=== PATIENT | female | born 1945 | race Caucasian/White ===

== ENCOUNTER 2017-10-11 19:21 | Inpatient (IN) | payer MEDICARE, OTHER ==
[~2017-10-11] VITALS: Ht 154.9 cm; Wt 62.1 kg
--- NOTE | ~2017-10-11 | PN ---
PATIENT:ONOFRE CALDERÓN MEDICAL RECORD: [id number] LOCATION:[facility] ADMISSION DATE: 10/11/17 PROGRESS NOTE DATE OF SERVICE: 10/17/2017 SUBJECTIVE: The patient's case was discussed with staff. She has no new complaint. OBJECTIVE: The patient has shown significant improvement. She is not aggressive. She is less confused. In fact, she is partially oriented. ASSESSMENT: No change in diagnoses. PLAN: Current medicines have been reviewed and will be maintained. The patient is improved sufficiently such that her daughter feels that she can take her to home with her instead of placing her in the [facility]. I am cautiously optimistic that this level of improvement will be maintained. TRANSINT:[id number] Voice Confirmation ID: [id number] DOCUMENT ID: [id number] JACINTO JOHNSON MD at 1129 CC: [id number] DICTATION DATE: 10/17/17 1428 AIR OPERATIONS MANAGER: 10/17/17 1522 ADM IN [place] [id number] [place] [address]
--- NOTE | ~2017-10-11 | PN ---
PATIENT:ONOFRE CALDERÓN MEDICAL RECORD: [id number] LOCATION:[facility] ADMISSION DATE: 10/11/17 PROGRESS NOTE DATE OF SERVICE: 10/14/2017 SUBJECTIVE: The patient's case was discussed with staff. She has no new complaint. OBJECTIVE: The patient has limited insight about her condition. She tolerates her medicines well. She is extremely confused and often has some agitated behavior that I think is associated with her inability to understand what is going on. ASSESSMENT: No change in diagnoses. PLAN: Current medicines have been reviewed and will be maintained. Her long-term prognosis is guarded. TRANSINT:[id number] Voice Confirmation ID: [id number] DOCUMENT ID: [id number] JACINTO JOHNSON MD at 1203 CC: [id number] DICTATION DATE: 10/14/17 1527 TRAFFIC EXPERT: 10/14/17 1607 ADM IN [place] [id number] [place] [address]
--- NOTE | ~2017-10-11 | DS ---
PATIENT:ONOFRE CALDERÓN :41 MEDICAL RECORD: [id number] DISCHARGE SUMMARY ADMISSION DATE: 10/11/17 DISCHARGE DATE: 10/20/17 IDENTIFYING DATA: The patient is 72 years old and she was admitted to the hospital on a voluntary basis. The patient has a longstanding diagnosis of dementia and apparently just prior to being admitted to the hospital she was disoriented and uncooperative. She was confused and agitated. The level of disruption was so severe that the family brought her to the Emergency Room. She was evaluated there from medical and neurologic standpoint and subsequently referred to Mental Health for hospitalization and treatment. The patient has a history of dementia and is cooperative, but quite distressed and confused. HOSPITAL COURSE: The patient was admitted to the hospital and fully evaluated from both a medical, psychological, and social standpoint. She was treated with both memory enhancing and mood stabilizing medications and showed substantial improvement through the course of the hospitalization. She was subsequently transitioned back to home where her daughter was going to care for her. DISCHARGE DIAGNOSES: AXIS I: Senile dementia of the Alzheimer's type with behavioral disturbances. AXIS II: None. AXIS III: Hypertension. AXIS IV: Moderate stressors. AXIS V: Global assessment of functioning is 40. PLAN: At the time of discharge, the patient had shown dramatic improvement and was still significantly impaired cognitively, but was certainly not agitated or behaviorally unmanageable. She was transitioned back home where her daughter is going to care for her at home. TRANSINT:[id number] Voice Confirmation ID: [id number] DOCUMENT ID: [id number] JACINTO JOHNSON MD at 1301 CC: [id number] DICTATION DATE: 10/21/17 1443 TUBE ROLLER: 10/21/17 1501 DIS IN 10/20/17 [place] [id number] [place] [id number]
--- NOTE | ~2017-10-11 | PN ---
PATIENT:ONOFRE CALDERÓN MEDICAL RECORD: [id number] LOCATION:[facility] ADMISSION DATE: 10/11/17 PROGRESS NOTE DATE OF SERVICE: 10/19/2017 SUBJECTIVE: The patient's case was discussed with staff. She has no new complaint. OBJECTIVE: The patient is in good behavioral control with limited insight about her condition. She tolerates her medicines well. ASSESSMENT: No change in diagnoses. PLAN: Supportive and educational interventions were made. Long-term prognosis is guarded. She has sufficiently improved such that I plan to discharge her tomorrow unless there is a change. TRANSINT:[id number] Voice Confirmation ID: [id number] DOCUMENT ID: [id number] JACINTO JOHNSON MD at 1459 CC: [id number] DICTATION DATE: 10/19/17 1154 ETCHER PHOTOENGRAVING: 10/19/17 1625 DIS IN 10/20/17 [place] [id number] [place] [address]
--- NOTE | ~2017-10-11 | PN ---
PATIENT:ONOFRE CALDERÓN MEDICAL RECORD: [id number] LOCATION:[facility] ADMISSION DATE: 10/11/17 PROGRESS NOTE DATE OF SERVICE: 10/15/2017 SUBJECTIVE: The patient's case was discussed with staff. She has no new complaint. OBJECTIVE: The patient is in good behavioral control with limited insight about her condition. She does tolerate her medicines reasonably well. ASSESSMENT: No change in diagnoses. PLAN: Brief supportive and educational interventions were made. Long-term prognosis is guarded. I am going to discontinue her Xanax secondary to what I think is a little bit of sedation. TRANSINT:[id number] Voice Confirmation ID: [id number] DOCUMENT ID: [id number] JACINTO JOHNSON MD at 1323 CC: [id number] DICTATION DATE: 10/15/17 1237 APPLIANCE WORKER: 10/15/17 1257 ADM IN [place] [id number] [place] [id number]
--- NOTE | ~2017-10-11 | PN ---
PATIENT:ONOFRE CALDERÓN MEDICAL RECORD: [id number] LOCATION:[facility] ADMISSION DATE: 10/11/17 PROGRESS NOTE DATE OF SERVICE: 10/13/2017 SUBJECTIVE: The patient's case was discussed with staff. She has no new complaint. OBJECTIVE: The patient is in good behavioral control with limited insight about her condition. She does tolerate her medicines well. ASSESSMENT: No change in diagnoses. PLAN: Current medicines and therapies have been reviewed, both will be maintained. Her long-term prognosis is guarded. It is clear that she has an advanced dementia and I am going to start her on Aricept at a dose of 5 mg at bedtime. I am unclear about her social situation. The history she gives is convoluted and in places contradictory. She has only been here a couple of days, but I feel certain that she needs 51-lgsl-c-day supervision. What is not clear is what setting would be the least restrictive to provide this. TRANSINT:[id number] Voice Confirmation ID: [id number] DOCUMENT ID: [id number] JACINTO JOHNSON MD at 1406 CC: [id number] DICTATION DATE: 10/13/17 1424 DESIGN/ANIMATION INSTRUCTOR: 10/13/17 1543 ADM IN [facility] [address] [place] [address]
--- NOTE | ~2017-10-11 | PN ---
PATIENT:ONOFRE CALDERÓN MEDICAL RECORD: [id number] LOCATION:[facility] ADMISSION DATE: 10/11/17 PROGRESS NOTE DATE OF SERVICE: 10/18/2017 SUBJECTIVE: The patient's case was discussed with staff. She has no new complaint. OBJECTIVE: The patient is in good behavioral control and is tolerating her medicines well. She is impaired cognitively, but has shown significant improvement in most other ways. ASSESSMENT: No change in diagnoses. PLAN: Current medicines have been reviewed and will be maintained. I anticipate the patient can be transitioned out of the hospital soon if this level of improvement continues. TRANSINT:[id number] Voice Confirmation ID: [id number] DOCUMENT ID: [id number] JACINTO JOHNSON MD at 1118 CC: [id number] DICTATION DATE: 10/18/17 1201 CARRIER DRIVER: 10/18/17 1348 ADM IN [place] [id number] [place] [id number]
--- NOTE | ~2017-10-11 | HP ---
PATIENT: ONOFRE CALDERÓN MEDICAL RECORD: [id number] ACCOUNT: [id number] LOCATION:[facility]9 : 41 ADMISSION DATE: 10/11/17 HISTORY AND PHYSICAL EXAMINATION PSYCHIATRIC EVALUATION IDENTIFYING DATA: The patient is 72 years old and she is admitted to the hospital on a voluntary basis. CHIEF COMPLAINT: Acute mental status change. HISTORY OF PRESENT ILLNESS: The patient has an existing diagnosis of dementia. Apparently, yesterday, she became disoriented and uncooperative. She was quite confused and agitated. The agitation consisted was so severe that the family decided it was an Emergency and brought her to the Emergency Room. She was evaluated there both medically and neurologically and referred for behavioral hospitalization. The patient says she has dementia. She does not have a good memory of what occurred yesterday as far as details, but says that her daughter wanted her to come to the hospital. She is cooperative and is not showing any evidence of acute distress when I interview her. PAST MEDICAL HISTORY: Significant for hypertension. PAST PSYCHIATRIC HISTORY: Significant for existing diagnosis of dementia, although the patient does not take a cholinesterase inhibitor. FAMILY HISTORY: Significant for dementia in first-degree relatives. ALLERGIES: KEFLEX, ALTHOUGH SHE IS CURRENTLY TAKING THAT MEDICINE. CURRENT MEDICATIONS: Include Keflex, benzoate, lisinopril, Percocet, alprazolam, Zoloft, AcipHex, and Nasacort. SOCIAL HISTORY: The patient is . She has adult children. 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 She has no history of drug or alcohol abuse. MENTAL STATUS EXAMINATION: The patient is awake; alert; and oriented to person, place, and somewhat to time and situation. Her mood is flat. Her affect is constricted. Thought processes are circumstantial. Memory, concentration, and abstraction abilities are moderately impaired. She denies any active intent to harm herself or others as well as overt psychotic symptoms. ASSETS: Supportive family members. LIABILITIES: Limited insight. DIAGNOSTIC IMPRESSION: AXIS I: Senile dementia of the Alzheimer's type with behavioral disturbances. AXIS II: None. AXIS III: Hypertension. AXIS IV: Moderate stressors. AXIS V: Global assessment of functioning is 30. HISTORY AND PHYSICAL [id number] ONOFRE CALDERÓN PLAN: At this time, the patient is admitted to the hospital for a comprehensive medical, psychological, and social evaluation. She will be treated with both mood stabilizing and memory enhancing medications. Her long-term prognosis is guarded. TRANSINT:[id number] Voice Confirmation ID: [id number] DOCUMENT ID: [id number] JACINTO JOHNSON MD at 1333 CC: [id number] DICTATION DATE: 10/12/17 1124 PANAMA HAT BLOCKER: 10/12/17 1158 ADM IN [place] [id number] [place] [id number]
--- NOTE | ~2017-10-11 | PN ---
PATIENT:ONOFRE CALDERÓN MEDICAL RECORD: [id number] LOCATION:[facility] ADMISSION DATE: 10/11/17 PROGRESS NOTE DATE OF SERVICE: 10/16/2017 SUBJECTIVE: The patient's case was discussed with staff. She has no new complaint. OBJECTIVE: The patient is in good behavioral control with limited insight about her condition. She does tolerate her medicines well. She is quite impaired cognitively. ASSESSMENT: No change in diagnoses. PLAN: Supportive and educational interventions were made. Long-term prognosis is guarded. TRANSINT:[id number] Voice Confirmation ID: [id number] DOCUMENT ID: [id number] JACINTO JOHNSON MD at 1350 CC: [id number] DICTATION DATE: 10/16/17 1400 ORDER ENTRY CLERK: 10/16/17 1406 ADM IN [place] [id number] [place] [address]
[2017-10-11] MEDS ORDERED: KEFLEX500 MG PO (19:29)
[2017-10-11] MEDS ORDERED: TESSALON PERLE100 MG PO (19:30)
[2017-10-11] MEDS ORDERED: ZESTRIL40 MG PO (19:30)
[2017-10-11] MEDS ORDERED: PERCOCET 10/3251 TA1 PO (19:32)
[2017-10-11] MEDS ORDERED: XANAX0.25 MG PO (19:32)
[2017-10-11] MEDS ORDERED: ZOLOFT50 MG PO (19:35)
[2017-10-11] MEDS ORDERED: ACIPHEX20 MG PO (19:35)
[2017-10-11] MEDS ORDERED: NASACORT10.8 ML (19:36)
[2017-10-11 20:30] VITALS: BP 161/78
[2017-10-11 20:56] LABS: BASOPHILS 0.4 % (0-2); EOSINOPHILS 1.1 % (0-7); HEMOGLOBIN 13.1 g/dL (12-16); IMMATURE GRANULOCYTES 0.6 % (0-5); LYMPHOCYTES 16.7 % (15-50); MCH 29.4 pg (26.0-34.0); MCHC 35.4 g/dL (31.0-37.0); MCV 83.1 fL (80.0-100.0); MEAN PLATELET VOLUME 10.2 fL (7.4-10.4); MONOCYTES 14.4 % (2-11); NEUTROPHILS 66.8 % (40-80); PLATELET COUNT 214 10x3/uL (130-400); RBC 4.45 10x6/uL (4.00-5.40); RDW 13.5 % (11.5-14.5); WBC 7.2 10x3/uL (4.8-10.8)
[2017-10-11 20:58] LABS: APPEARANCE CLEAR (CLEAR); BILIRUBIN NEGATIVE (NEGATIVE); COLOR YELLOW (YELLOW); GLUCOSE NEGATIVE (NEGATIVE); KETONE NEGATIVE (NEGATIVE); NITRITE NEGATIVE (NEGATIVE); PROTEIN NEGATIVE (NEGATIVE); SPECIFIC GRAVITY 1.015 (1.005-1.020); UROBILINOGEN NORMAL (NORMAL)
[2017-10-11 21:08] LABS: ALBUMIN 4.6 g/dL (3.4-5.0); ANION GAP 18.5 mmol/L (8-16); BILIRUBIN - TOTAL 0.4 mg/dL (0.2-1.3); CALCIUM 9.8 mg/dL (8.5-10.1); CARBON DIOXIDE 24.5 mmol/L (21.0-32.0); CREATININE - SERUM 1.2 mg/dL (0.6-1.3); PROTEIN - SERUM 8.4 g/dL (6.4-8.2)
[2017-10-11 21:13] VITALS: BP 159/83
[2017-10-12 03:57] VITALS: BP 148/59; BMI 25.9
[2017-10-12 06:38] LABS: BASOPHILS 0.2 % (0-2); EOSINOPHILS 0.4 % (0-7); HEMATOCRIT 35.8 % (36.0-48.0); HEMOGLOBIN 12.5 g/dL (12-16); IMMATURE GRANULOCYTES 0.6 % (0-5); LYMPHOCYTES 17.6 % (15-50); MCH 28.9 pg (26.0-34.0); MCHC 34.9 g/dL (31.0-37.0); MCV 82.9 fL (80.0-100.0); MEAN PLATELET VOLUME 10.9 fL (7.4-10.4); MONOCYTES 12.3 % (2-11); NEUTROPHILS 68.9 % (40-80); PLATELET COUNT 237 10x3/uL (130-400); RBC 4.32 10x6/uL (4.00-5.40); RDW 13.5 % (11.5-14.5); WBC 8.4 10x3/uL (4.8-10.8)
[2017-10-12 07:00] VITALS: BP 106/51
[2017-10-12 07:11] LABS: ALBUMIN 4.2 g/dL (3.4-5.0); ANION GAP 15.5 mmol/L (8-16); BILIRUBIN - TOTAL 0.51 mg/dL (0.2-1.3); CALCIUM 9.4 mg/dL (8.5-10.1); CARBON DIOXIDE 24.4 mmol/L (21.0-32.0); CREATININE - SERUM 1.1 mg/dL (0.6-1.3); LDL-HDL RATIO 0.9 ratio (1.5-3.5); POTASSIUM - SERUM 4.9 mmol/L (3.5-5.1); PROTEIN - SERUM 8.1 g/dL (6.4-8.2); THYROID STIMULATING HORMONE 3.37 uIU/mL (0.36-3.74)
[2017-10-12 20:05] VITALS: BP 111/51; BP 127/60
[2017-10-13 07:00] VITALS: BP 141/72
[2017-10-13 08:29] LABS: ANION GAP 14.4 mmol/L (8-16); CALCIUM 9.7 mg/dL (8.5-10.1); CARBON DIOXIDE 24.4 mmol/L (21.0-32.0); CREATININE - SERUM 1.2 mg/dL (0.6-1.3); POTASSIUM - SERUM 4.8 mmol/L (3.5-5.1)
[2017-10-13 19:25] VITALS: BP 111/51
[2017-10-14 05:15] LABS: VITAMIN D 25 HYDROXY 36.7 ng/mL (30.0-100.0)
[2017-10-14 06:14] LABS: RAPID PLASMA REAGIN Non Reactive (Non Reactive)
[2017-10-14 08:49] VITALS: BP 120/58; BP 94/62
[2017-10-14 10:19] LABS: FOLATE (FOLIC ACID) - SERUM 16.3 ng/mL (>3.0)
[2017-10-14 14:10] VITALS: Ht 154.9 cm; Wt 62.1 kg
[2017-10-14 21:22] VITALS: BP 134/68
[2017-10-15 08:05] VITALS: BP 160/80
[2017-10-15 20:55] VITALS: BP 113/61
[2017-10-16 07:33] LABS: ANION GAP 10.3 mmol/L (8-16); CALCIUM 9.1 mg/dL (8.5-10.1); CARBON DIOXIDE 27.8 mmol/L (21.0-32.0); CREATININE - SERUM 0.9 mg/dL (0.6-1.3); POTASSIUM - SERUM 4.1 mmol/L (3.5-5.1)
[2017-10-16 11:03] VITALS: BP 146/65
[2017-10-16 20:05] VITALS: BP 120/63
[2017-10-17 07:46] VITALS: BP 123/76
[2017-10-17 20:35] VITALS: BP 159/64
[2017-10-18 09:37] VITALS: BP 142/67; BP 162/84
[2017-10-18 19:21] VITALS: BP 155/61
[2017-10-19 08:00] VITALS: BP 146/71
[2017-10-19] MEDS ORDERED: ARICEPT5 MG PO (11:52)
[2017-10-19] MEDS ORDERED: PERPHENAZINE2 MG PO (11:52)
[2017-10-19] MEDS ORDERED: LIDODERM 5 %1 PATCH TRANSDERM (11:53)
[2017-10-19] MEDS ORDERED: PROTONIX40 MG PO (11:53)
[2017-10-19 19:25] VITALS: BP 91/58
[2017-10-20 09:47] VITALS: BP 129/70
== END 2017-10-20 13:44 | disposition home or self-care (01) | DRG 57 ==
LOC: D.ER 19:21 → D.PSYCH 23:20
PROVIDERS: Emergency Medicine; Family Medicine; Psychiatry & Neurology Psychiatry
DX: G30.1 Alzheimer's disease with late onset (principal); F02.81 Dementia in other diseases classified elsewhere, unspecified severity, with behavioral disturbance; E87.1 Hypo-osmolality and hyponatremia; I10 Essential (primary) hypertension; F41.9 Anxiety disorder, unspecified; K21.9 Gastro-esophageal reflux disease without esophagitis; G89.29 Other chronic pain; M54.5 Low back pain

== ENCOUNTER 2017-12-10 18:23 | Emergency (ER) | payer MEDICARE, OTHER ==
[~2017-12-10] VITALS: Ht 152.4 cm; Wt 65.9 kg
[~2017-12-10 18:23] MED LIST: ACIPHEX20 MG PO; ARICEPT5 MG PO; KEFLEX500 MG PO; LIDODERM 5 %1 PATCH TRANSDERM; NASACORT10.8 ML; PERCOCET 10/3251 TA1 PO; PERPHENAZINE2 MG PO; PROTONIX40 MG PO; TESSALON PERLE100 MG PO; XANAX0.25 MG PO; ZESTRIL40 MG PO; ZOLOFT50 MG PO
[2017-12-10 18:33] VITALS: Ht 152.4 cm; Wt 65.9 kg
[2017-12-10] MEDS ORDERED: ULTRAM50 MG PO (18:36)
[2017-12-10 20:26] VITALS: BP 182/92
== END 2017-12-10 20:42 | disposition home or self-care (01) ==
LOC: D.ER 18:23
DX: S60.222A Contusion of left hand, initial encounter (principal); S05.12XA Contusion of eyeball and orbital tissues, left eye, initial encounter; W18.31XA Fall on same level due to stepping on an object, initial encounter; Y93.89 Activity, other specified; Y92.89 Other specified places as the place of occurrence of the external cause; S01.112A Laceration without foreign body of left eyelid and periocular area, initial encounter; I10 Essential (primary) hypertension; K21.9 Gastro-esophageal reflux disease without esophagitis